=== PATIENT | female | born 1940 | race Caucasian/White ===

== ENCOUNTER 2016-09-11 14:35 | Inpatient (IN) | payer OTHER, MEDICAID ==
[~2016-09-11] VITALS: Ht 157.5 cm; Wt 94.0 kg
--- NOTE | 2016-09-11 15:01 | NUR ---
PT C/O SOB, PRODUCTIVE COUGH WITH HEMOPTYSIS, AND CHEST PAIN UPON COUGHING. PT IS AAOX4, FOLLOWS COMMANDS, ANSWERS QUESTIONS APPROPRIATELY. RESP EVEN AND UNLABORED, RA. DIM JONATHAN EXP WHEEZES ARIE. PT SPEAKING IN FULL SENTENCES, ONLY PAUSING NOTED IS WHEN COUGHING. PT REPORTS MID CHEST PAIN AND BACK PAIN WHEN COUGHING. PT REPORTS HAVING SYMPTOMS X3 DAYS. PT DENIES ABD PAIN, DENIES N/V/D, DENIES PAIN WITH URINATION.
--- NOTE | 2016-09-11 15:49 | NUR ---
OPTICAL ELEMENT COATER AT BEDSIDE FOR BLOOD DRAW
--- NOTE | 2016-09-11 15:54 | NUR ---
EKG IN PROGRESS
--- NOTE | 2016-09-11 15:55 | NUR ---
R/T AT BEDSIDE FOR BREATHING TREATMENT
--- NOTE | 2016-09-11 15:57 | NUR ---
RADIOLOGY AT BEDSIDE FOR PCXR
[2016-09-11 16:02] LABS: BASOPHIL % 0.4 % (0-2); PLATELET COUNT 379 x10^3mcL (130-400)
[2016-09-11 16:04] LABS: microscopic required? YES; urine erythrocyte TRACE (NEGATIVE)
[2016-09-11 16:05] LABS: RED CELL DISTRIBUTION WIDTH 14.7 % (11.5-14.5)
[2016-09-11 16:10] LABS: CALCIUM 9.4 mg/dL (8.5-10.1); CARBON DIOXIDE 30.2 mmol/L (21-32); CHLORIDE SERUM 101 mmol/L (98-107); GLUCOSE SERUM 125 mg/dL (74-106); SODIUM SERUM 139 mmol/L (136-145)
[2016-09-11 16:15] LABS: ALBUMIN 3.3 g/dL (3.4-5.0); ALKALINE PHOSPHATASE 108 U/L (46-116); ALT/SGPT 15 U/L (14-59); AST/SGOT 19 U/L (15-37); BILIRUBIN TOTAL 0.5 mg/dL (0.20-1.00); MAGNESIUM 1.9 mg/dL (1.8-2.4); TOTAL PROTEIN, SERUM 7.9 g/dL (6.4-8.2)
--- NOTE | 2016-09-11 16:52 | NUR ---
DR KING AT BEDSIDE SPEAKING TO PT
--- NOTE | 2016-09-11 17:08 | NUR ---
[facility]
--- NOTE | 2016-09-11 17:27 | NUR ---
PT IV INFILTRATED DURING CT SCAN WITH CONTRAST. TECH REPORTS CHECKING IV PRIOR TO SCAN AND STS THAT IV FLUSHED WELL W/O SIGNS OF INFILTRATION. PT DENIES PAIN. TECH SPOKE TO RADIOLOGIST ABOUT SITUATION AND WAS ADVISED TO REDO SCAN IF NEW IV CAN BE ESTABLISHED AND TO APPLY COLD COMPRESSES TO L ARM AND CHECK PULSES Q2 AND NOTIFY DR IF PULSES ARE NOT PALPABLE. NEW IV ESTABLISHED TO RAC 20G, FLUSHED WELL WITH 10ML NS, NO SIGN OF INFILTRATION OR REDNESS NOTED. DR KING MADE AWARE OF SITUATION WELL
--- NOTE | 2016-09-11 18:25 | NUR ---
PT REMAINS IN STABLE CONDITION. RESP EVEN AND UNLABORED, 2LT NC. VS STABLE. NAD NOTED. PT DENIES PAIN TO L ARM FROM EARLIER CT SCAN INFILTRATION FROM CONTRAST. RADIAL PULSE PRESENT. +SENSATION, NO TINGLING OR NUMBNESS REPORTS. WARM BLANKET APPLIED TO L ARM PER RADIOLOGIST RECOMENDATION
[2016-09-11] MEDS ORDERED: TOPROL XL25 MG (19:46)
[2016-09-11] MEDS ORDERED: SIMVASTATIN10 M1 (19:47)
[2016-09-11] MEDS ORDERED: NOR5 (19:47)
[2016-09-11] MEDS ORDERED: LOSARTAN POTASS25 M1 (19:47)
[2016-09-11] MEDS ORDERED: COREG CR20 MG (19:47)
[2016-09-11] MEDS ORDERED: FLOINH4 (19:48)
[2016-09-11] MEDS ORDERED: POTASSIUM CHLO20 ME1 (19:48)
[2016-09-11] MEDS ORDERED: CHILDREN'S5 MG/5 M1 (19:48)
[2016-09-11] MEDS ORDERED: LASIX20 MG (19:48)
[2016-09-11] MEDS ORDERED: ALENDRONATE SOD70 M2 PO (19:48)
[2016-09-11] MEDS ORDERED: PHOSLO667 MG (19:49)
[2016-09-11 20:11] LABS: CHOLESTEROL/HDL RATIO 2.1
--- NOTE | 2016-09-11 20:17 | NUR ---
REPORT GIVEN TO MIRTHA FLOYD TO ASSUME CARE OF PT.
[2016-09-11 20:20] LABS: FREE T4 1.31 ng/dL (0.76-1.46); FREE THYROXINE INDEX 3.1 ug/dL (1.4-4.5); T3 TOTAL 1.1 ng/mL; T4(THYROXINE) 9.6 ug/dL (4.7-13.3)
--- NOTE | 2016-09-11 20:33 | NUR ---
PT TRANSFERRED TO TELE BED 230 VIA [facility] WITH RN RADHA AND EMT ROMEL AT PT SIDE. PT A&OX4,NO ACUTE DISTRESS NOTED, RESP EVEN AND UNLABORED, TRANSFERRED WITHOUT INCIDENCE.
[2016-09-11 20:51] VITALS: BP 135/70
--- NOTE | 2016-09-11 20:56 | NUR ---
SANDHYA PT FROM ED VIA CELESTINE. ORIENTED PT TO ROOM AND SURROUNDINGS. IV NOTED TO RAC PATENT AND INTACT. TELE 18 PLACED ON PT READING ST WITH PVCS. INSTRUCTED PT ON THE USE OF CALL LIGHT FOR ASSISTANCE. ENDORSED PT TO PRIMARY NURSE MARIEL
--- NOTE | 2016-09-11 22:06 | NUR ---
PT RESTING QUIETLY IN BED. NEW ADM. FROM ER. ALERT AND ORIENTED.ADMITTED WITH COMPLAINTS OF SOB AND COUGH WITH BLOODY SPUTUM. HX OF TB X15 YEARS AGO, PT STATES , SHE WAS TREATED. DENIES HEADACHE/DIZZINESS. RESP. EVEN AND UNLABORED.02 AT 2L/MINS VIA NC, SAT. 95%, NO DISTRESS NOTED. DENIES SOB AT THIS TIME, OCCA, NON PRODUCTIVE COUGH NOTED. AFEBRILE AND VITAL SIGNS STABLE. ON TELE #18, MONITOR SHOWS SR WITH OCC. PVCS. DENIES CHEST PAIN OR PRESSURE. STARTED ON IVF, NS AT 50ML/HR, INFUSING VIA RAC, SITE CLEAR. ABD. SOFT, NON DISTENDED, BS ACTIVE. NO N/V NOTED. SKIN WARM AND DRY TO TOUCH, INTACT. NO EDEMA NOTED.AMBULATORY. DUE MEDS GIVEN ORDERED, ADWOA. WELL. CALL LIGHT WITHIN REACH. PLACED ON AIRBORNE ISOLATION. WILL CONTINUE TO MONITOR.
[2016-09-11] MEDS ORDERED: METOPROLOL TAR100 MG PO (22:17)
[2016-09-11] MEDS ORDERED: SIMVASTATIN40 M1 PO (22:18)
[2016-09-11] MEDS ORDERED: ASPIR LOW81 MG PO (22:19)
[2016-09-11] MEDS ORDERED: COZAAR100 MG PO (22:20)
[2016-09-11] MEDS ORDERED: CLARITIN10 MG PO (22:21)
[2016-09-11] MEDS ORDERED: CLOPIDOGREL75 M1 PO (22:21)
[2016-09-11] MEDS ORDERED: LASIX40 MG PO (22:22)
[2016-09-11 22:30] VITALS: BP 135/70
--- NOTE | 2016-09-12 02:38 | NUR ---
AWAKE AT THIS TIME. ASSISTED TO THE BATHROOM, VOIDED. KEPT COMFORTABLE. WILL CONTINUE TO MONITOR.
[2016-09-12 05:29] VITALS: BP 133/72
--- NOTE | 2016-09-12 06:22 | NUR ---
AFEBRILE AND VITAL SIGNS STABLE. KEPT COMFORTABLE. DENIES CHEST PAIN OR ANY DISCOMFORT. [address], ADWOA. NO SOB OR ANY DISTRESS NOTED. DUE MEDS GIVEN ORDERED, ADWOA. WELL. IVF INTACT AND INFUSING. WITH OCCA. COUGH, WITH BLOODY SPUTUM. OUT OF ISOLATION PER DR LAL. WILL ENDORSE TO INCOMING NURSE.
--- NOTE | 2016-09-12 07:34 | NUR ---
PT SEEN AWAKE, ALERT, ORIENTED X 3. PT'S FAMILY MEMBERS JUST CAME IN. PT NO COMPLAIN OF PAIN AND COUGH AT THIS TIME. PT BREATHING ON O2 3L VIA NC, EVEN, UNLABORED. IV SITE PATENT, INTACT.
[2016-09-12 07:36] VITALS: BP 141/72
[2016-09-12 10:46] VITALS: BP 148/89
[2016-09-12 12:59] VITALS: BP 121/74
[2016-09-12 17:57] VITALS: BP 107/77
--- NOTE | 2016-09-12 18:18 | NUR ---
PT ATE DINNER WELL. FAMILY MEMBERS AT BED SIDE. PT NO COMPLAIN OF PAIN, AND SOB. PT STATED UP POSITION FEELING MORE COMFORT. PT BREATHING ON O2 3L VIA NC, EVEN, UNLABORED. IV SITE PATENT, INTACT.
--- NOTE | 2016-09-12 19:30 | NUR ---
SHIFT REASSESSMENT DONE.PATIENT ALERT AND ORIENTED.SITTING UP AT BEDSIDE,IN GOOD SPIRIT.PATIENT GEN WEAKNESS,AMBULATORY,CALL LITE IN REACH.O2 AT 3 L.NS AT 50 CC/ HOUR.TELE 18 SR/ST.SKIN INTACT.SCD ORDERED.CALL LITE IN REACH.
--- NOTE | 2016-09-12 20:55 | NUR ---
PM MEDS GIVEN,GIVEN COUGH SYRUP,SWALLOWS WELL.IVF INFUSING,ATB GIVEN WITHOUT ANY INCIDENT.
--- NOTE | 2016-09-12 21:19 | NUR ---
DAUGHTER AT BEDSIDE,STAYING FOR TONIGHT,WANTING GERICHAIR,WILL FIND ONE.NO GUARANTEE.
--- NOTE | 2016-09-12 21:20 | NUR ---
PATIENT IS A DNR STATUS.
[2016-09-12 21:26] VITALS: BP 119/69
--- NOTE | 2016-09-13 02:49 | NUR ---
ATB SCHEDULED GIVEN,NO INCIDENT.
--- NOTE | 2016-09-13 03:31 | NUR ---
RAC IV SITE LEAKING FROM THE SITE,UNABLE TO SAVE IT.
--- NOTE | 2016-09-13 03:39 | NUR ---
TRYING TO PUT IV AT THIS TIME,VERY HARD VEIN TO FIND.
--- NOTE | 2016-09-13 03:48 | NUR ---
ICU NURSE IDANIA,UNABLE TO START IV,TRIED TWICED,CHARGE NURSE BART YOUNG.
--- NOTE | 2016-09-13 03:51 | NUR ---
BART WILL TRY TO PUT IV AT THIS TIME.
--- NOTE | 2016-09-13 04:50 | NUR ---
UNABLE TO START IV LINE.WILL RETRY AGAIN LATER.
[2016-09-13 05:22] VITALS: BP 135/71
--- NOTE | 2016-09-13 05:52 | NUR ---
I AND O MEASURED.IV STILL UNABLE TO START.PATIENT RESTING QUIETLY AT THIS TIME,GIVEN COUGH SYRUP TWICED THIS SHIFT.WILL ENDORSE TO INCOMING SHIFT.
--- NOTE | 2016-09-13 06:19 | NUR ---
PATIENT IS NAUSEATEDMSHE HAS NO IV LINE,ALSO PAIN ,WANTING PAIN SHOT,DR SHARP MADE AWRAE THAT PATIENT HAS NO IV LINE,OK TO GIVE MED ZOFRAN IM AND MSO4 IM.
--- NOTE | 2016-09-13 06:26 | NUR ---
REMINDED NEXT SHIFT HAS TO TRY INSERTING IV,NO SUCCESS THIS SHIFT.BART YOUNG.
--- NOTE | 2016-09-13 06:39 | NUR ---
ALEXIA WILL TRY TO INSERT.FAMILY REMINDED.
[2016-09-13 06:42] LABS: BASOPHIL % 0.4 % (0-2); PLATELET COUNT 284 x10^3mcL (130-400)
[2016-09-13 06:52] LABS: RED CELL DISTRIBUTION WIDTH 14.8 % (11.5-14.5)
--- NOTE | 2016-09-13 07:00 | NUR ---
AAOX4 ABLE TO VERBALIZE NEEDS WITH CLEAR SPEEH, DAUGHTER AT BEDSIDE, ON OXYGEN VIA NC AT 2L, LUNGS DIMINISHED, C/O PRODUCTIVE COUGH WITH PINK TINGED SPUTUM, ON TELE #18 ST ON MONITOR, DENIES ANY HEART RELATED PAIN OR DISCOMFORT, CALL LIGHT WITHIN REACH, WILL CONTINUE TO PROVIDE CARE.
[2016-09-13 07:10] LABS: CALCIUM 8.8 mg/dL (8.5-10.1); CARBON DIOXIDE 28.8 mmol/L (21-32); CHLORIDE SERUM 103 mmol/L (98-107); CREATININE SERUM 0.8 mg/dL (0.6-1.0); GLUCOSE SERUM 108 mg/dL (74-106); MAGNESIUM 1.9 mg/dL (1.8-2.4); PHOSPHOROUS 2.9 mg/dL (2.5-4.9); POTASSIUM SERUM 3.9 mmol/L (3.5-5.1); SODIUM SERUM 140 mmol/L (136-145)
[2016-09-13 07:20] LABS: ALBUMIN 2.7 g/dL (3.4-5.0)
--- NOTE | 2016-09-13 09:38 | NUR ---
ON ROOM AIR, O2 SATS 92%, DENIES SOB AT THIS TIME. ABLE TO TAKE ALL PO MEDS WITHOUT SWALLLOW DELAY.
--- NOTE | 2016-09-13 09:49 | NUR ---
echocardiogram pending patient with studio model
--- NOTE | 2016-09-13 11:11 | NUR ---
DR MCCOLLUM AT BEDSIDE TO SPEAK WITH PT AND FAMILY, WILL F/U WITH NEW OR CHANGED ORDERS.
--- NOTE | 2016-09-13 11:11 | NUR ---
LATE ENTRY FOR 829: ROUNDS WITH DR VIERA AND MEDICAL TEAM, UPDATED PT ON CURRENT POC, PATIENT AND DAUGHTER VERBALIZED AGREEMENT TO POC. 929: REELING AND TUBING MACHINE OPERATOR FROM PATIENT'S JEWISH PAID VISIT.
--- NOTE | 2016-09-13 13:26 | NUR ---
DR GUADALUPE AT BEDSIDE TO SPEAK WITH PATIENT AND FAMILY.
[2016-09-13 15:00] VITALS: BP 104/67
--- NOTE | 2016-09-13 15:50 | NUR ---
DR SCHUSTER REQUESTING H&P DOCS FROM PATIENT.
--- NOTE | 2016-09-13 16:55 | NUR ---
LATE ENTRY FOR 1500: DR CR COVERING FOR DR TATE MADE AWARE OF NO IV ACCESS, NEW ORDER FOR AUGMENTIN PO WILL BE ENTERED.
--- NOTE | 2016-09-13 16:57 | NUR ---
IV ACCESS HAS BEEN UNSUCCESSFUL, DR TATE IS AWARE.
[2016-09-13] MEDS ORDERED: NOR10T PO (18:35)
[2016-09-13] MEDS ORDERED: PHECLUD PO (18:36)
--- NOTE | 2016-09-13 19:26 | NUR ---
FAM AT BEDSIDE, PATIENT IS SITTING UP IN CHAIR, DENIES SOB, REPORTS FEELING POSITIVE ABOUT HER DECISIONS WITH POC, HAS STRONG FAMILY SUPPORT, IV ACCESS UNSUCCESSFUL, ABX TX IS NOW PO, NO OTHER SIGNIFICANT CHANGES NOTED, CARE ENDORSED TO NIGHT NURSE.
--- NOTE | 2016-09-13 19:46 | NUR ---
SHIFT REASSESSMENT DONE.PATIENT ALERT AND ORIENTED,LOTS OF FAMILY MEMBER AT BEDSIDE,SUPPORTIVE OF CARE.NO IV LINE.HAS ATB PO NOW,HOSPICE EVAL.TELE 18 SR/ST. WEAKNESS.FALL PRECAUTION.HAD COUGH SYRUP TODAY,SAYS IT HELP.CALL LITE IN REACH.
--- NOTE | 2016-09-13 20:07 | NUR ---
PATIENT AND FAMILY AT [facility],PATIENT IS SPITTING BLOOD IN [place],NURSE AND CHARGE NURSE IS PRESENT,WONDERING WHY THE SPITTING OF BLOOD STILL HAPPENING,PATIENT AND FAMILY FROM REPORT THAT THEY REFUSED BIOPSY.EXPLAINED HER CONDITION TO PATIENT AND FAMILY,PATIENT LIVE ALONE,WHEN DC HAS TO BE WITH FAMILY MEMBER IN A ONE LEVEL HOUSE/APARTMENT,AT THIS TIME SHE LIVE IN A SECOND LEVEL.PSYCHOLOGICAL CARE GIVEN TO PATIENT AND ALL FAMILY MEMBER,BART CHARGE NURSE TALKING TO THEM.
--- NOTE | 2016-09-13 20:58 | NUR ---
PATIENT ANOTHER FAMILY MEMBER AT BEDSIDE PAULA,JUST CAME FROM WORK,STAYING FOR ANOTHER ON HOUR/PERMISSION.PSYCHOLOGICAL CARE GIVEN.
[2016-09-13 21:44] VITALS: BP 119/65
--- NOTE | 2016-09-14 01:41 | NUR ---
PATIENT GIVEN COUGH SYRUP AT THIS TIME,SWALLOWS WELL.BACK TO SLEEP COMFORTABLY,DAUGHTER BELEM STAYING OVERNITE.
[2016-09-14 04:53] VITALS: BP 105/69
--- NOTE | 2016-09-14 05:44 | NUR ---
I AND O MEASURED.REMAINS ON DNR STATUS,PATIENT IS ALERT AND ORIENTED.CALL LITE IN REACH.
--- NOTE | 2016-09-14 07:20 | NUR ---
RECEIVED Pt. AAOX4. RESPIRATIONS EVEN AND UNLABORED O2 2L/MIN NC. DENIES PAIN/DISCOMFORT AT THIS TIME. NO DISTRESS NOTED. TELE [address] NSR HR 94. EATING BREAKFAST AT THIS TIME. TOLERATED DIET WELL. Pt. NO IV ACCESS. DAUGHTER AT BEDSIDE. WILL CONTINUE TO MONITOR. BED LOW/LOCKED. CALL LIGHT IN REACH.
--- NOTE | 2016-09-14 08:00 | NUR ---
MADE ROUNDS WITH DR. VIERA AND MEDICINE TEAM, Pt. POSSIBLE DISCHARGE TODAY AND AGREED WITH PLAN OF CARE.
[2016-09-14 09:29] VITALS: BP 108/64
[2016-09-14] MEDS ORDERED: CLEOCIN HCL300 MG PO (11:11)
[2016-09-14] MEDS ORDERED: LEVAQUIN750 MG PO (11:12)
--- NOTE | 2016-09-14 12:30 | NUR ---
Pt. NOTED EATING LUNCH TRAY TOLERATED WELL. DENIES SORE THROAT AT THIS TIME. DENIES COUGHING. FAMILY AT BEDSIDE.
[2016-09-14 13:52] VITALS: BP 120/68
[2016-09-14 14:56] VITALS: BP 120/68
[2016-09-14 17:19] VITALS: BP 120/68
[2016-09-14] MEDS ORDERED: CEPACOL SORE TH1 LO4 MM (17:30)
[2016-09-14 17:41] VITALS: BP 120/68
--- NOTE | 2016-09-14 19:40 | NUR ---
Pt. AAOX4. RESPIRATIONS EVEN AND UNLABORED ON O2 2L/MIN NC. DENIES SOB/DYSPNEA. NO DISTRESS NOTED. DENIES PAIN/DISCOMFORT. ALL RX AND DISCHARGE INSTRUCTIONS EXPLAINED TO Pt. AND DAUGHTER HERMINIO TANG AND VERBALIZED UNDERSTANDING. TELE RETURNED. [facility] TO FOLLOW Pt. AFTER DISCHARGE. Pt. LEFT WITH ALL BELONGINGS AND PORTABLE O2.
== END 2016-09-14 19:40 | disposition home or self-care (01) | DRG 177 ==
LOC: ED 14:35 → DU 19:28
PROVIDERS: Emergency Medicine; ADMIT Family Medicine
DX: J69.0 Pneumonitis due to inhalation of food and vomit (principal); J96.01 Acute respiratory failure with hypoxia; R91.8 Other nonspecific abnormal finding of lung field; I10 Essential (primary) hypertension; E78.5 Hyperlipidemia, unspecified; J44.9 Chronic obstructive pulmonary disease, unspecified; I25.10 Atherosclerotic heart disease of native coronary artery without angina pectoris; M85.80 Other specified disorders of bone density and structure, unspecified site; Z68.38 Body mass index [BMI] 38.0-38.9, adult; Z87.891 Personal history of nicotine dependence; Z95.1 Presence of aortocoronary bypass graft; Z95.5 Presence of coronary angioplasty implant and graft; Z79.82 Long term (current) use of aspirin; Z66 Do not resuscitate
CPT/HCPCS: 36600; 83880; 84439; J2270; J2405; J2543; J3490; J7030; J7613; J7644; Q0092; Q9967